=== PATIENT | female | born 1945 | race Caucasian/White ===

== ENCOUNTER → 2017-04-30 | Outpatient (CLI) | payer MEDICARE ==
[~2017-04-30] MED LIST: CELECOXIB200 M1 PO; FELODIPINE10 MG PO; HYDROCHLOROTHIA25 M1 PO; HYDROCODONE BIT1 T11 PO; SERTRALINE HYDR50 MG PO; ZOFRAN4 MG PO; ZOLPIDEM TART5 MG PO
== END | disposition home or self-care (01) ==
LOC: US 12:25
DX: N95.0 Postmenopausal bleeding (principal); R93.8 Abnormal findings on diagnostic imaging of other specified body structures

== ENCOUNTER → 2017-07-23 | Outpatient (CLI) | payer MEDICARE ==
[~2017-07-23] MED LIST changes: +ASPIRIN81 M1 PO; +BENTYL10 MG PO; +PRESERVISION A1 EAC1 PO; +PRILOSEC20 M1 PO; +STOOL SOFTENER100 M3 PO; +TYLENOL325 M1 PO; +VITAMIN C60 MG PO
[2017-07-23 11:42] LABS: BASO # 0.1 10*3/uL (0.0-0.1); BASO % 0.9 % (0.0-1.0); EOS % 0.6 % (1.0-4.0); HEMATOCRIT 41.3 % (37.0-47.0); HEMOGLOBIN 13.4 g/dl (12.0-16.0); LYMPH # 2.2 10*3/uL (1.3-4.4); LYMPH % 34.7 % (27.0-41.0); MEAN CELL VOLUME 90.8 fl (81.0-99.0); MEAN CORPUSCULAR HGB 29.5 pg (27.0-31.0); MEAN CORPUSCULAR HGB CONC 32.4 g/dl (33.0-37.0); MONO # 0.5 10*3/uL (0.1-1.0); MONO % 8.3 % (3.0-9.0); NEUT # 3.5 10*3/uL (2.3-7.9); NEUT % 55.2 % (47.0-73.0); PLATELET COUNT AUTOMATED 347 10*3/uL (130-400); RED BLOOD COUNT 4.55 10*6/uL (4.10-5.10); RED CELL DISTRI WIDTH 13.7 % (0-14.5); WHITE BLOOD COUNT 6.4 10*3/uL (4.8-10.8)
== END | disposition home or self-care (01) ==
LOC: LAB 10:09
PROVIDERS: Obstetrics & Gynecology
DX: N95.0 Postmenopausal bleeding (principal)

== ENCOUNTER → 2017-07-29 | Day surgery (SDC) | payer MEDICARE ==
[~2017-07-29] VITALS: Ht 160 cm; Wt 72.6 kg
--- NOTE | ~2017-07-29 | WRIGHTHP ---
[place], [place] PATIENT HISTORY AND PHYSICAL EXAM NAME[id number] UNIT #: [id number] ROOM: DOCTOR: JACOB WOODWARD MD BIRTHDATE: [birth year] DOS: 07/29/2017 DATE OF SURGERY: 07/29/2017 HISTORY OF PRESENT ILLNESS: This is a 71-year-old white female, 2, para 2 who was seen 07/17/2017 with a chief complaint of spotting on and off for several days prior to her appointment. She had been evaluated in March for spotting on several occasions and had an ultrasound, indicating an endometrial thickness of 0.2 cm. Her Pap at that time was negative. She also was advised to follow up of recurrent bleeding or spotting and we consider an outpatient D and C and hysteroscopy. The patient did follow up stating that she wears a pad all the time for issues, but also for intermittent spotting and bleeding which can be bright red or brown. We discussed the pluses and minuses of an outpatient hysteroscopy and D and C, she did state understanding and signed a consent. She also was having hiatal hernia repair on August 02 at [place] and we wanted to make sure we get this smaller procedure completed first before that scheduled surgery. PAST MEDICAL HISTORY: Reveals history of hypertension and depression. PAST SURGICAL HISTORY: She is due for colonoscopy in April 2018. She has had 2 pregnancies and 2 vaginal deliveries. She has had a cyst removed from an ovary. She has had left knee replacement. SOCIAL HISTORY: She does not smoke. She does not drink. ALLERGIES: BEE STINGS AND POISON JOLANTA. MEDICATIONS: List is rather lengthy in that she uses Celebrex 200 mg daily for discomfort, felodipine ER 10 mg daily for hypertension, hydrochlorothiazide 25 mg daily for hypertension, Prilosec 20 mg daily for GERD, hydrocodone and acetaminophen 5/325 one tab p.o. q.6 hours p.r.n. for pain. She uses Zoloft 50 mg daily for depression and finally she uses Myrbetriq, which she states is used for treating constipation. She does take Ambien 5 mg at bedtime p.r.n. for insomnia and Bentyl 10 mg 2 tabs q.i.d. for IBS. REVIEW OF SYSTEMS: Otherwise stable. FAMILY HISTORY: Really for this particular situation is noncontributory. PHYSICAL EXAMINATION: GENERAL: The patient is a pleasant white female. VITAL SIGNS: She is 5 feet 3 inches, 163 pounds, BMI is 29, oxygen sat 97 percent. Her blood pressure is 147/75 and she is in no apparent distress. HEENT: Grossly intact. NECK: Grossly intact. LUNGS: Grossly intact. CARDIAC: Grossly intact. BREASTS: Grossly intact. ABDOMEN: Grossly intact. EXTREMITIES: Grossly intact. [place], [place] PATIENT HISTORY AND PHYSICAL EXAM NAME: [facility] WOR[facility] [id number] UNIT #: [id number] ROOM: DOCTOR: JACOB WOODWARD MD BIRTHDATE: [birth year] NEUROLOGIC: Grossly intact. GENITOURINARY: External genitalia, vagina and cervix are normal with most recent Pap negative. Uterus is anteverted and anteflexed, overall normal in size and configuration, nontender, mobile. The adnexa were not palpable. PLAN: The patient will undergo outpatient hysteroscopy, D and C on 07/29/2017. JACOB WOODWARD MD CM:HISPHYS:PATIENT HISTORY AND PHYSICAL EXAMINATION [id number] JACOB WOODWARD MD 07/24/17 0304 interface
--- NOTE | ~2017-07-29 | O ---
[place], [place] OPERATIVE NOTE NAME: SILVESTRE WORLEY UNIT #: [id number] ROOM: DOCTOR: JACOB FORD MD BIRTHDATE: [birth year] DOS: 07/29/2017 PREOPERATIVE DIAGNOSES: Recurrent postmenopausal bleeding ____ in internal os of the cervix. POSTOPERATIVE DIAGNOSES: Recurrent postmenopausal bleeding ____ in internal os of the cervix with no evidence to suggest endometrial atypia per the hysteroscopy. PROCEDURE: Hysteroscopy and D and C. SURGEON: Dr. Jacob Ford M.D. ANESTHESIA: MAC. ESTIMATED BLOOD LOSS: Minimal. REPLACEMENTS: IV fluids. COMPLICATIONS: There were no complications. CONDITION: The patient's condition to recovery stable. OPERATIVE SUMMARY: The patient was taken to the operating room in supine position, MAC anesthesia, lithotomy position, prepped and draped in routine manner. Cervix was grasped at 12 o'clock. The uterus sounded to about 7.5-8 cm. Cervix progressively dilated, followed by hysteroscopic examination of the intrauterine cavity, which revealed a very atrophic endometrium and a symmetric endometrium from the cornual region, the fundus, the body of uterus and lower uterine segment. A thorough D and C was then undertaken and stone forceps were utilized, revealing only a small amount of tissue. Once this was completed, the patient was cleaned off, the tenaculum removed and noting good hemostasis, she was taken out of lithotomy position, awakened and transferred to recovery in stable condition with stable vital signs, good hemostasis and stable sponge and instrument count. [place], [place] OPERATIVE NOTE NAME: SILVESTRE WORLEY Clarice UNIT #: [id number] ROOM: DOCTOR: JACOB FORD MD BIRTHDATE: [birth year] JACOB FORD MD CM:OPRECORD:OPERATIVE NOTE [id number] SHELL FORD MD 07/30/17 0625 interface
[2017-07-29 14:15] VITALS: BP 160/62
[2017-07-29 14:30] VITALS: BP 177/64
[2017-07-29 14:45] VITALS: BP 184/70
== END | disposition home or self-care (01) ==
LOC: SDC 07-23 10:15
DX: N92.4 Excessive bleeding in the premenopausal period (principal); I10 Essential (primary) hypertension; F32.9 Major depressive disorder, single episode, unspecified; Z96.652 Presence of left artificial knee joint; K21.9 Gastro-esophageal reflux disease without esophagitis; M19.90 Unspecified osteoarthritis, unspecified site; Z82.49 Family history of ischemic heart disease and other diseases of the circulatory system; Z87.891 Personal history of nicotine dependence

== ENCOUNTER 2018-02-22 13:00 | Emergency (ER) | payer MEDICARE ==
[~2018-02-22] VITALS: Ht 157.4 cm; Wt 72.6 kg
[2018-02-22 14:00] LABS: BASO % 0.7 % (0.0-1.0); EOS # 0.1 10*3/uL (0.0-0.4); HEMOGLOBIN 12.3 g/dl (12.0-16.0); LYMPH # 2.1 10*3/uL (1.3-4.4); LYMPH % 33.8 % (27.0-41.0); MEAN CELL VOLUME 92.2 fl (81.0-99.0); MEAN CORPUSCULAR HGB 29.1 pg (27.0-31.0); MEAN CORPUSCULAR HGB CONC 31.5 g/dl (33.0-37.0); MONO # 0.5 10*3/uL (0.1-1.0); MONO % 8.6 % (3.0-9.0); NEUT # 3.3 10*3/uL (2.3-7.9); NEUT % 54.7 % (47.0-73.0); PLATELET COUNT AUTOMATED 306 10*3/uL (130-400); RED BLOOD COUNT 4.23 10*6/uL (4.10-5.10); RED CELL DISTRI WIDTH 14.3 % (0-14.5); WHITE BLOOD COUNT 6.1 10*3/uL (4.8-10.8)
[2018-02-22 14:22] LABS: ALBUMIN 3.9 gm/dl (3.1-4.5); ALKALINE PHOSPHATASE 89 U/L (45-117); BUN 18 mg/dl (7-24); CHLORIDE 103 mmol/L (98-107); CREATININE 0.83 mg/dL (0.55-1.02); POTASSIUM 4.1 mmol/L (3.5-5.1); SGOT/AST 28 IU/L (3-35); SGPT/ALT 29 U/L (12-78); SODIUM 141 mmol/L (136-145); TOTAL PROTEIN 7.3 gm/dL (6.4-8.2)
[2018-02-22] MEDS ORDERED: NORVASC5 MG PO (14:43)
== END 2018-02-22 14:46 | disposition home or self-care (01) ==
LOC: ED 13:00
PROVIDERS: Registered Nurse
DX: M17.11 Unilateral primary osteoarthritis, right knee (principal); I10 Essential (primary) hypertension; Z79.899 Other long term (current) drug therapy; Z79.82 Long term (current) use of aspirin

== ENCOUNTER → 2018-05-05 | Outpatient (CLI) | payer MEDICARE ==
[~2018-05-05] MED LIST changes: +NORVASC5 MG PO
== END ==
LOC: MRI 07:44
DX: S83.241A Other tear of medial meniscus, current injury, right knee, initial encounter (principal); M71.20 Synovial cyst of popliteal space [Baker], unspecified knee; M25.861 Other specified joint disorders, right knee; X58.XXXA Exposure to other specified factors, initial encounter; Y93.89 Activity, other specified; Y92.89 Other specified places as the place of occurrence of the external cause; Y99.8 Other external cause status; Z91.81 History of falling

== ENCOUNTER → 2018-05-21 | Outpatient (CLI) | payer MEDICARE | END | disposition home or self-care (01) | LOC: MRI 05-19 08:00 | DX: M48.07 Spinal stenosis, lumbosacral region (principal); M48.061 Spinal stenosis, lumbar region without neurogenic claudication; M51.36 Other intervertebral disc degeneration, lumbar region; M51.26 Other intervertebral disc displacement, lumbar region; I10 Essential (primary) hypertension; M54.16 Radiculopathy, lumbar region; G83.10 Monoplegia of lower limb affecting unspecified side; Z91.81 History of falling ==

== ENCOUNTER → 2018-12-08 | Outpatient (CLI) | payer MEDICARE | END | disposition home or self-care (01) | LOC: CT 11:00 | DX: R19.07 Generalized intra-abdominal and pelvic swelling, mass and lump (principal); R10.12 Left upper quadrant pain; M47.816 Spondylosis without myelopathy or radiculopathy, lumbar region; L92.9 Granulomatous disorder of the skin and subcutaneous tissue, unspecified ==

== ENCOUNTER → 2019-06-04 | Outpatient (CLI) | payer MEDICARE | END | disposition home or self-care (01) | LOC: US 06:12 | DX: I70.291 Other atherosclerosis of native arteries of extremities, right leg (principal); I25.10 Atherosclerotic heart disease of native coronary artery without angina pectoris; I10 Essential (primary) hypertension ==

== ENCOUNTER 2019-07-14 15:51 | Inpatient (IN) | payer MEDICARE ==
[~2019-07-14] VITALS: Ht 152.4 cm; Wt 74.4 kg
[2019-07-14 15:53] VITALS: BP 188/60
[2019-07-14 17:00] LABS: BASO % 0.7 % (0.0-1.0); EOS # 0.1 10*3/uL (0.0-0.4); EOS % 1.6 % (1.0-4.0); HEMATOCRIT 35.5 % (37.0-47.0); HEMOGLOBIN 11.2 g/dl (12.0-16.0); LYMPH # 2.3 10*3/uL (1.3-4.4); LYMPH % 36.9 % (27.0-41.0); MEAN CELL VOLUME 94.2 fl (81.0-99.0); MEAN CORPUSCULAR HGB 29.7 pg (27.0-31.0); MEAN CORPUSCULAR HGB CONC 31.5 g/dl (33.0-37.0); MEAN PLATELET VOLUME 9.3 fl (9.6-12.3); MONO # 0.5 10*3/uL (0.1-1.0); NEUT # 3.2 10*3/uL (2.3-7.9); NEUT % 52.6 % (47.0-73.0); PLATELET COUNT AUTOMATED 304 10*3/uL (130-400); RED BLOOD COUNT 3.77 10*6/uL (4.10-5.10); RED CELL DISTRI WIDTH 14.1 % (0-14.5); WHITE BLOOD COUNT 6.1 10*3/uL (4.8-10.8)
[2019-07-14 17:03] LABS: ACT PARTIAL THROMBO TIME 24.7 SECONDS (20.0-32.1)
[2019-07-14 17:07] LABS: ALBUMIN 3.4 gm/dl (3.1-4.5); ALKALINE PHOSPHATASE 81 U/L (45-117); BUN 15 mg/dl (7-24); CHLORIDE 106 mmol/L (98-107); CREATININE 0.71 mg/dL (0.55-1.02); LIPASE 70 U/L (73-393); POTASSIUM 3.6 mmol/L (3.5-5.1); SGOT/AST 16 IU/L (3-35); SGPT/ALT 14 U/L (12-78); SODIUM 141 mmol/L (136-145); TOTAL PROTEIN 6.7 gm/dL (6.4-8.2)
[2019-07-14 17:16] LABS: TROPONIN I 0.047 ng/ml (<0.045)
[2019-07-14 18:17] LABS: BILIRUBIN NEGATIVE (NEGATIVE); BLOOD NEGATIVE (NEGATIVE); CLARITY CLEAR (CLEAR); COLOR YELLOW (YELLOW); GLUCOSE NEGATIVE (NEGATIVE); KETONE 1+ (NEGATIVE); LEUKO ESTERASE NEGATIVE (NEGATIVE); NITRITE NEGATIVE (NEGATIVE); SPECIFIC GRAVITY 1.025 (1.005-1.030); UROBILINOGEN 0.2 E.U./dl (0.2-1.0)
[2019-07-14 18:28] LABS: BACTERIA TRACE; CALCIUM OXALATE CRYSTALS 2+
[2019-07-14 19:00] VITALS: BP 189/67
[2019-07-14 20:25] VITALS: BP 178/72
--- NOTE | 2019-07-14 20:25 | NUR ---
A 73, admitted to , under the services of DHARA Yoon DO with a diagnosis of GENERALIZED WEAKNESS. Chief complaint is GI BLEEDING. Patient arrived via stretcher from ER. Monitor applied. Initial assessment completed. Vital signs taken and recorded. DR. DUONG notified of admission to the unit. Orders received. See assessment for past medical history, medications and allergies. Patient and/or family oriented to unit. [address] visitation policy reviewed. Clothing/patient valuable form completed. MAHIN BETH
--- NOTE | 2019-07-14 20:59 | NUR ---
NOTIFIED DR. RESENDIZ OF CONSULT FOR GI BLEED, MELENA. NO NEW ORDERS AT THIS TIME.
[2019-07-14] MEDS ORDERED: ZOLOFT100 MG PO (21:06)
[2019-07-14] MEDS ORDERED: COREG6.25 MG PO (21:07)
[2019-07-14] MEDS ORDERED: BUSPAR5 MG PO (21:07)
[2019-07-14] MEDS ORDERED: ZESTRIL20 MG PO (21:07)
[2019-07-14] MEDS ORDERED: CENTRUM VITAM200 MCG PO (21:08)
[2019-07-14] MEDS ORDERED: OSTERA TABLET1 EACH PO (21:09)
[2019-07-14] MEDS ORDERED: PERCOCET 5-3251 EACH PO (21:10)
--- NOTE | 2019-07-14 21:30 | NUR ---
NOTIFIED DR. DUONG THAT PATIENT'S MED LIST WAS UP TO DATE EXCEPT THE MEDICATION THAT REPLACED HER CELEBREX. DAUGHTER WILL LET US KNOW TOMORROW THE NAME OF THE NEW MEDICATION.
[2019-07-15] VITALS (7 sets, daily range): BP systolic 150–202; BP diastolic 59–76
--- NOTE | 2019-07-15 00:44 | NUR ---
DR. DUONG NONTIFIED OF CRITICAL TROPONIN OF 0.050.
[2019-07-15 06:55] LABS: BASO % 0.8 % (0.0-1.0); EOS # 0.1 10*3/uL (0.0-0.4); EOS % 1.6 % (1.0-4.0); HEMATOCRIT 34.8 % (37.0-47.0); HEMOGLOBIN 11.1 g/dl (12.0-16.0); LYMPH % 39.7 % (27.0-41.0); MEAN CELL VOLUME 94.3 fl (81.0-99.0); MEAN CORPUSCULAR HGB 30.1 pg (27.0-31.0); MEAN CORPUSCULAR HGB CONC 31.9 g/dl (33.0-37.0); MEAN PLATELET VOLUME 9.3 fl (9.6-12.3); MONO # 0.5 10*3/uL (0.1-1.0); MONO % 9.7 % (3.0-9.0); NEUT # 2.4 10*3/uL (2.3-7.9); PLATELET COUNT AUTOMATED 312 10*3/uL (130-400); RED BLOOD COUNT 3.69 10*6/uL (4.10-5.10); RED CELL DISTRI WIDTH 14.1 % (0-14.5); WHITE BLOOD COUNT 4.9 10*3/uL (4.8-10.8)
[2019-07-15 07:28] LABS: BUN 9 mg/dl (7-24); CHLORIDE 106 mmol/L (98-107); POTASSIUM 3.2 mmol/L (3.5-5.1); SODIUM 138 mmol/L (136-145)
[2019-07-15 07:41] LABS: CHOLESTEROL 202 mg/dL (<200); CREATININE 0.58 mg/dL (0.55-1.02); FREE T4 0.98 ng/dl (0.76-1.46); HDL CHOLESTEROL 69 mg/dl (40-60); LDL CHOLESTEROL 120 mg/dL (9-159); PHOSPHOROUS 2.9 mg/dL (2.5-4.9); TRIGLYCERIDES 64 mg/dl (<150); VLDL CHOLESTEROL 13 mg/dL (6-40)
--- NOTE | 2019-07-15 08:29 | NUR ---
NOTIFIED DR. VAZQUEZ OF CRITICAL LAB VALUE.
--- NOTE | 2019-07-15 08:52 | NUR ---
Nursing screen received and chart reviewed. Patient admitted for elevated troponin I levels and generalized weakness. Patient has a PMH including R TKA, HTN, and OA. If patient has a decline in ADLs and functional mobility/transfers, please request OT orders. Thank you. Sabrina Mckinley, OTR/L
--- NOTE | 2019-07-15 09:00 | NUR ---
Kettle Cleaner in to talk to patient. Patient states lives at home with her who is currently a patient in the hospital. There are 0 steps in the home. Physician: Dr. Micah House Pharmacy: [facility] Home health services: she goes to OP PT in [facility] on [address], she doesn't know the name of the company Patient's level of ADLs: MINIMAL ASSIST Patient has working utilities: yes DME: walker Follow-up physician's appointment after d/c: will be made by the hospitalist nurse director upon discharge Does patient want to access PORTAL?: no Discharge plan discussed with patient. She lives at home with her who is currently an IP also. She is independent in her ADLs and uses a walker for ambulation. Discussed home health care services and she currently is doing OP PT in [place]. Discussed short term SNF and she refuses. When medically stable she will be discharged to home. Her daughter will provide transportation on discharge. ASAEL EARL
[2019-07-15 09:01] LABS: VITAMIN D, 25-HYDROXY 27.5 ng/mL (30-100)
--- NOTE | 2019-07-15 09:03 | NUR ---
PHYSICAL THERAPY Nursing screen received and chart reviewed. Recommend PT evaluation if decline in functional status presents. Thank you. Pau Escalera,PT,DPT
--- NOTE | 2019-07-15 10:06 | NUR ---
NOTIFIED DR. MORGAN'S OFFICE OF CONSULT.
--- NOTE | 2019-07-15 10:23 | NUR ---
ZOFRAN GIVEN FOR C/O NAUSEA. WILL MONITOR.
--- NOTE | 2019-07-15 11:51 | NUR ---
PT. INSTRUCTED ON I/S AND THE BENEFITS OF EXERCISE. PT. ACHIEVED A VOLUME OF 1500. PT. INSTRUCTED TO TAKE HOME UPON DISHARGE. GOOD EFFORT.
--- NOTE | 2019-07-15 12:17 | NUR ---
DR. VAZQUEZ NOTIFIED OF PATIENT'S MANUAL BLOOD PRESSURE OF 202/72. AWAITING ORDERS
--- NOTE | 2019-07-15 12:44 | NUR ---
DULCOLAX GIVEN FOR C/O CONSTIPATION. WILL MONITOR.
--- NOTE | 2019-07-15 14:30 | NUR ---
Occupational Therapy evaluation completed on 4 with full eval to follow. Precautions include ww use, right TKA 06/09/19, low complexity level 12597 via chart review, testing and evaluation. Recommend no further OT at this time and return home with outpt PT to be continued per patient. Thank you. Tobin Chong OTR/L
--- NOTE | 2019-07-15 14:52 | NUR ---
PHYSICAL THERAPY Physical therapy screen complete. Patient Chau with FWW throughout hallways. No PT needs at this time. Plan to continue outpatient PT services at discharge. Discharge PT orders. Thank you. Pau Escalera,PT,DPT.
[2019-07-16] VITALS: BP 145/46
[2019-07-16 06:52] LABS: BASO % 0.7 % (0.0-1.0); EOS # 0.1 10*3/uL (0.0-0.4); EOS % 1.6 % (1.0-4.0); HEMOGLOBIN 10.8 g/dl (12.0-16.0); LYMPH # 2.3 10*3/uL (1.3-4.4); LYMPH % 40.5 % (27.0-41.0); MEAN CELL VOLUME 94.1 fl (81.0-99.0); MEAN CORPUSCULAR HGB CONC 30.9 g/dl (33.0-37.0); MEAN PLATELET VOLUME 9.6 fl (9.6-12.3); MONO # 0.6 10*3/uL (0.1-1.0); MONO % 10.5 % (3.0-9.0); NEUT # 2.7 10*3/uL (2.3-7.9); NEUT % 46.5 % (47.0-73.0); PLATELET COUNT AUTOMATED 322 10*3/uL (130-400); RED BLOOD COUNT 3.72 10*6/uL (4.10-5.10); RED CELL DISTRI WIDTH 14.2 % (0-14.5); WHITE BLOOD COUNT 5.7 10*3/uL (4.8-10.8)
[2019-07-16 07:04] LABS: CHLORIDE 109 mmol/L (98-107); POTASSIUM 3.7 mmol/L (3.5-5.1); SODIUM 144 mmol/L (136-145)
[2019-07-16 07:06] LABS: BUN 13 mg/dl (7-24); CREATININE 0.69 mg/dL (0.55-1.02); PHOSPHOROUS 3.1 mg/dL (2.5-4.9)
[2019-07-16 08:00] VITALS: BP 160/78
--- NOTE | 2019-07-16 10:16 | NUR ---
PATIENT REQUESTING PAIN MEDICATION FOR KNEE PAIN RATED 6/10 ON 0/10 SCALE. PERCOCET ADMINISTERED PRESCRIBED. WILL MONITOR FOR EFFECTIVENESS.
--- NOTE | 2019-07-16 11:16 | NUR ---
PATIENT STATES THAT PERCOCET WAS EFFECTIVE FOR KNEE PAIN RATES 2/10 ON 0/10 SCALE. WILL CONTINUE TO MONITOR.
[2019-07-16 12:00] VITALS: BP 132/52
--- NOTE | 2019-07-16 14:01 | NUR ---
Client Solutions Manager in to see patient. No new needs or request at this time. Discussed short term SNF and home health care services and she denies either. When medically stable she will be discharged to home with the resumption of her OP therapy in [place].
[2019-07-16 16:00] VITALS: BP 158/68
[2019-07-16 20:00] VITALS: BP 177/46
[2019-07-17] VITALS: BP 149/57
[2019-07-17 06:57] LABS: BASO % 0.6 % (0.0-1.0); EOS # 0.1 10*3/uL (0.0-0.4); EOS % 2.2 % (1.0-4.0); HEMATOCRIT 35.8 % (37.0-47.0); HEMOGLOBIN 11.4 g/dl (12.0-16.0); LYMPH # 2.2 10*3/uL (1.3-4.4); MEAN CORPUSCULAR HGB 29.9 pg (27.0-31.0); MEAN CORPUSCULAR HGB CONC 31.8 g/dl (33.0-37.0); MEAN PLATELET VOLUME 8.9 fl (9.6-12.3); MONO # 0.5 10*3/uL (0.1-1.0); MONO % 8.4 % (3.0-9.0); NEUT # 3.4 10*3/uL (2.3-7.9); NEUT % 53.5 % (47.0-73.0); PLATELET COUNT AUTOMATED 324 10*3/uL (130-400); RED BLOOD COUNT 3.81 10*6/uL (4.10-5.10); RED CELL DISTRI WIDTH 14.1 % (0-14.5); WHITE BLOOD COUNT 6.3 10*3/uL (4.8-10.8)
--- NOTE | 2019-07-17 09:00 | NUR ---
Fried Cake Maker in to see patient. No new needs or request at this time. When medically stable she will be discharged to home with the resumption of her OP therapy in [place].
[2019-07-17 10:40] VITALS: BP 140/80
[2019-07-17 12:00] VITALS: BP 157/53
[2019-07-17] MEDS ORDERED: ASPIR-TRIN325 MG PO (12:01)
[2019-07-17] MEDS ORDERED: COREG12.5 M1 PO (12:04)
[2019-07-17] MEDS ORDERED: ZESTRIL30 M3 PO (12:04)
[2019-07-17] MEDS ORDERED: ATORVASTATIN CA40 M1 PO (12:04)
--- NOTE | 2019-07-17 14:45 | NUR ---
Discharge instructions reviewed with patient/family. Patient receptive and verbalizes understanding. Follow-up care arranged. Written instructions given to patient/family.Patient was wheeled from unit by staff and family member. Patient and daughter were educated on new prescriptions and follow up appointment scheduled with Dr. Potts. All of patients personal belongings were accounted for. FAITH PIÑA
== END 2019-07-17 14:45 | disposition home or self-care (01) | DRG 305 ==
LOC: ED 15:51 → 4E 17:54 → EDHOLD 17:54 → 4E 19:51
PROVIDERS: Internal Medicine; Nurse Practitioner Family; Student in an Organized Health Care Education/Training Program; ADMIT Internal Medicine
DX: I16.0 Hypertensive urgency (principal); I43 Cardiomyopathy in diseases classified elsewhere; I10 Essential (primary) hypertension; D64.9 Anemia, unspecified; K21.9 Gastro-esophageal reflux disease without esophagitis; Z96.651 Presence of right artificial knee joint; M19.90 Unspecified osteoarthritis, unspecified site; R79.89 Other specified abnormal findings of blood chemistry; E78.5 Hyperlipidemia, unspecified; E87.6 Hypokalemia; M17.10 Unilateral primary osteoarthritis, unspecified knee; I11.9 Hypertensive heart disease without heart failure; I25.10 Atherosclerotic heart disease of native coronary artery without angina pectoris; I08.0 Rheumatic disorders of both mitral and aortic valves; Z91.030 Bee allergy status; Z79.899 Other long term (current) drug therapy; Z79.82 Long term (current) use of aspirin; Z82.49 Family history of ischemic heart disease and other diseases of the circulatory system; Z84.89 Family history of other specified conditions

== ENCOUNTER 2019-08-06 15:45 | Emergency (ER) | payer MEDICARE ==
[~2019-08-06] VITALS: Ht 152.4 cm; Wt 72.6 kg
[~2019-08-06 15:45] MED LIST changes: +ASPIR-TRIN325 MG PO; +ATORVASTATIN CA40 M1 PO; +BUSPAR5 MG PO; +CENTRUM VITAM200 MCG PO; +COREG12.5 M1 PO; +COREG6.25 MG PO; +OSTERA TABLET1 EACH PO; +PERCOCET 5-3251 EACH PO; +ZESTRIL20 MG PO; +ZESTRIL30 M3 PO; +ZOLOFT100 MG PO
== END 2019-08-06 16:29 | disposition home or self-care (01) ==
LOC: ED 15:45
DX: R53.83 Other fatigue (principal); Z01.31 Encounter for examination of blood pressure with abnormal findings; I10 Essential (primary) hypertension; Z88.1 Allergy status to other antibiotic agents; Z91.048 Other nonmedicinal substance allergy status; Z79.899 Other long term (current) drug therapy; Z79.82 Long term (current) use of aspirin

== ENCOUNTER 2020-03-16 22:01 | Emergency (ER) | payer MEDICARE ==
[~2020-03-16] VITALS: Ht 157.4 cm; Wt 77.1 kg
[2020-03-16 22:37] LABS: BASO % 0.2 % (0.0-1.0); HEMATOCRIT 35.4 % (37.0-47.0); LYMPH % 18.3 % (27.0-41.0); MEAN CELL VOLUME 92.7 fl (81.0-99.0); MEAN CORPUSCULAR HGB 30.1 pg (27.0-31.0); MEAN CORPUSCULAR HGB CONC 32.5 g/dl (33.0-37.0); MEAN PLATELET VOLUME 9.3 fl (9.6-12.3); MONO # 0.4 10*3/uL (0.1-1.0); MONO % 7.4 % (3.0-9.0); NEUT % 73.9 % (47.0-73.0); PLATELET COUNT AUTOMATED 223 10*3/uL (130-400); RED BLOOD COUNT 3.82 10*6/uL (4.10-5.10); RED CELL DISTRI WIDTH 12.9 % (0-14.5); WHITE BLOOD COUNT 5.4 10*3/uL (4.8-10.8)
[2020-03-16 22:47] LABS: ACT PARTIAL THROMBO TIME 30.2 SECONDS (20.0-32.1)
[2020-03-16 22:53] LABS: ALBUMIN 3.3 gm/dl (3.1-4.5); CREATININE 1.25 mg/dL (0.55-1.02); POTASSIUM 3.5 mmol/L (3.5-5.1); TROPONIN I 0.025 ng/ml (<0.045)
[2020-03-17 00:27] LABS: BILIRUBIN NEGATIVE (NEGATIVE); BLOOD TRACE-INTACT (NEGATIVE); CLARITY SL CLOUDY (CLEAR); COLOR YELLOW (YELLOW); GLUCOSE NEGATIVE (NEGATIVE); KETONE NEGATIVE (NEGATIVE); SPECIFIC GRAVITY 1.015 (1.005-1.030)
[2020-03-17 00:28] LABS: LEUKO ESTERASE TRACE (NEGATIVE); NITRITE NEGATIVE (NEGATIVE); UROBILINOGEN 0.2 E.U./dl (0.2-1.0)
[2020-03-17] MEDS ORDERED: MEDROL DOSEPAK4 MG PO (04:08)
== END 2020-03-17 04:31 | disposition home or self-care (01) ==
LOC: ED 22:01
PROVIDERS: Emergency Medicine
DX: M54.5 Low back pain (principal); R06.02 Shortness of breath; G89.29 Other chronic pain; I10 Essential (primary) hypertension; E78.5 Hyperlipidemia, unspecified; M19.90 Unspecified osteoarthritis, unspecified site; F32.9 Major depressive disorder, single episode, unspecified; K21.9 Gastro-esophageal reflux disease without esophagitis; Z88.8 Allergy status to other drugs, medicaments and biological substances; Z79.899 Other long term (current) drug therapy

== ENCOUNTER 2020-03-23 22:02 | Emergency (ER) | payer MEDICARE ==
[~2020-03-23] VITALS: Ht 160 cm; Wt 83.0 kg
[~2020-03-23 22:02] MED LIST changes: +MEDROL DOSEPAK4 MG PO
[2020-03-23 22:35] LABS: MEAN CELL VOLUME 91.8 fl (81.0-99.0); MEAN CORPUSCULAR HGB CONC 32.7 g/dl (33.0-37.0); MEAN PLATELET VOLUME 9.2 fl (9.6-12.3); PLATELET COUNT AUTOMATED 465 10*3/uL (130-400); RED BLOOD COUNT 4.03 10*6/uL (4.10-5.10); RED CELL DISTRI WIDTH 12.6 % (0-14.5); WHITE BLOOD COUNT 17.7 10*3/uL (4.8-10.8)
[2020-03-23 22:40] LABS: BILIRUBIN NEGATIVE (NEGATIVE); BLOOD NEGATIVE (NEGATIVE); CLARITY SL CLOUDY (CLEAR); COLOR YELLOW (YELLOW); GLUCOSE NEGATIVE (NEGATIVE); KETONE NEGATIVE (NEGATIVE); LEUKO ESTERASE 2+ (NEGATIVE); NITRITE NEGATIVE (NEGATIVE); UROBILINOGEN 0.2 E.U./dl (0.2-1.0)
[2020-03-23] MEDS ORDERED: ZESTORETIC 20-1 EACH PO (22:46)
[2020-03-23] MEDS ORDERED: AMLODIPINE BESY10 MG PO (22:47)
[2020-03-23 22:51] LABS: CREATININE 1.13 mg/dL (0.55-1.02); POTASSIUM 4.1 mmol/L (3.5-5.1); TOTAL PROTEIN 7.2 gm/dL (6.4-8.2)
[2020-03-23] MEDS ORDERED: CARVEDILOL6.25 MG PO (22:52)
[2020-03-23] MEDS ORDERED: CELECOXIB200 M1 PO (22:53)
[2020-03-23] MEDS ORDERED: POTASSIUM CHLO20 ME4 PO (22:54)
[2020-03-23] MEDS ORDERED: NITROFURANTOIN100 M9 PO (22:54)
[2020-03-23 22:55] LABS: BACTERIA 1+; WBC 16-20 wbc/hpf (0-5)
[2020-03-23 23:00] LABS: PLATELET SUFFICIENCY HIGH (NORMAL); TOTAL CELLS COUNTED 100 #CELLS
== END 2020-03-24 01:58 | disposition short-term general hospital (02) ==
LOC: ED 22:02
PROVIDERS: Emergency Medicine
DX: S72.141A Displaced intertrochanteric fracture of right femur, initial encounter for closed fracture (principal); I10 Essential (primary) hypertension; E78.5 Hyperlipidemia, unspecified; M19.90 Unspecified osteoarthritis, unspecified site; G89.29 Other chronic pain; K21.9 Gastro-esophageal reflux disease without esophagitis; Z88.1 Allergy status to other antibiotic agents; Z79.899 Other long term (current) drug therapy; Z79.82 Long term (current) use of aspirin; W01.0XXA Fall on same level from slipping, tripping and stumbling without subsequent striking against object, initial encounter; Y93.89 Activity, other specified; Y92.89 Other specified places as the place of occurrence of the external cause; Y99.8 Other external cause status

== ENCOUNTER → 2020-06-17 | Outpatient (CLI) | payer MEDICARE ==
[~2020-06-17] MED LIST changes: +AMLODIPINE BESY10 MG PO; +CARVEDILOL6.25 MG PO; +NITROFURANTOIN100 M9 PO; +POTASSIUM CHLO20 ME4 PO; +ZESTORETIC 20-1 EACH PO
== END | disposition home or self-care (01) ==
LOC: US 12:23
PROVIDERS: ATTEND Orthopaedic Surgery
DX: R06.02 Shortness of breath (principal); M79.651 Pain in right thigh; M25.559 Pain in unspecified hip

== ENCOUNTER 2022-09-20 12:29 | Emergency (ER) | payer MEDICARE ==
[~2022-09-20] VITALS: Ht 152.4 cm; Wt 77.1 kg
[2022-09-20] MEDS ORDERED: MYRBETRIQ50 M1 PO (13:53)
[2022-09-20] MEDS ORDERED: VITAMIN D-40010 MCG PO (13:55)
== END 2022-09-20 15:25 | disposition home or self-care (01) ==
LOC: ED 12:29
DX: S76.211A Strain of adductor muscle, fascia and tendon of right thigh, initial encounter (principal); Z88.1 Allergy status to other antibiotic agents; Z79.899 Other long term (current) drug therapy; Z98.890 Other specified postprocedural states; X50.9XXA Other and unspecified overexertion or strenuous movements or postures, initial encounter; Y93.89 Activity, other specified; Y92.89 Other specified places as the place of occurrence of the external cause; Y99.8 Other external cause status

== ENCOUNTER 2022-11-18 12:23 | Emergency (ER) | payer MEDICARE ==
[~2022-11-18] VITALS: Ht 152.4 cm; Wt 74.8 kg
[~2022-11-18 12:23] MED LIST changes: +MYRBETRIQ50 M1 PO; +VITAMIN D-40010 MCG PO
[2022-11-18] MEDS ORDERED: HYDROCODONE-AC1 EAC1 PO (14:31)
== END 2022-11-18 14:53 | disposition home or self-care (01) ==
LOC: ED 12:23
DX: S83.411A Sprain of medial collateral ligament of right knee, initial encounter (principal); W22.8XXA Striking against or struck by other objects, initial encounter; Y93.89 Activity, other specified; Y92.89 Other specified places as the place of occurrence of the external cause; Y99.8 Other external cause status; Z88.1 Allergy status to other antibiotic agents; Z88.8 Allergy status to other drugs, medicaments and biological substances; Z98.890 Other specified postprocedural states

== ENCOUNTER 2023-05-30 16:31 | Emergency (ER) | payer MEDICARE ==
[~2023-05-30] VITALS: Ht 152.4 cm; Wt 77.1 kg
[~2023-05-30 16:31] MED LIST changes: +HYDROCODONE-AC1 EAC1 PO
[2023-05-30 17:38] LABS: BASO % 0.2 % (0.0-1.0); EOS # 0.1 10*3/uL (0.0-0.4); EOS % 0.4 % (1.0-4.0); HEMATOCRIT 38.7 % (37.0-47.0); LYMPH # 2.7 10*3/uL (1.3-4.4); LYMPH % 14.8 % (27.0-41.0); MEAN CELL VOLUME 92.1 fl (81.0-99.0); MEAN CORPUSCULAR HGB 30.2 pg (27.0-31.0); MEAN CORPUSCULAR HGB CONC 32.8 g/dl (33.0-37.0); MONO % 5.2 % (3.0-9.0); NEUT # 14.3 10*3/uL (2.3-7.9); NEUT % 78.9 % (47.0-73.0); PLATELET COUNT AUTOMATED 343 10*3/uL (130-400); RED CELL DISTRI WIDTH 13.6 % (0-14.5); WHITE BLOOD COUNT 18.2 10*3/uL (4.8-10.8)
[2023-05-30 17:59] LABS: POTASSIUM 3.3 mmol/L (3.4-5.1); TOTAL PROTEIN 6.8 gm/dL (6.0-8.0)
[2023-05-30 22:18] LABS: BILIRUBIN Negative (Negative); BLOOD Negative (Negative); CLARITY Clear (Clear); COLOR Yellow (Yellow); GLUCOSE Negative (Negative); KETONE 1+ (Negative); LEUKO ESTERASE Negative (Negative); NITRITE Negative (Negative); PH 5.5 (4.5-8.0); SPECIFIC GRAVITY 1.015 (1.001-1.030); UROBILINOGEN 0.2 E.U./dl (0.0-1.0)
[2023-05-30 22:27] LABS: EPITHELIAL CELLS 16-20
[2023-05-30 22:28] LABS: BACTERIA TRACE
[2023-06-04] MEDS ORDERED: VENLAFAXINE HYD75 M3 PO (03:05)
== END 2023-05-30 23:20 | disposition home or self-care (01) ==
LOC: ED 16:31
PROVIDERS: Internal Medicine
DX: B34.9 Viral infection, unspecified (principal); Z20.822 Contact with and (suspected) exposure to COVID-19; R11.2 Nausea with vomiting, unspecified; R19.7 Diarrhea, unspecified; N17.9 Acute kidney failure, unspecified; E83.42 Hypomagnesemia; D72.89 Other specified disorders of white blood cells; Z88.1 Allergy status to other antibiotic agents; Z91.048 Other nonmedicinal substance allergy status; Z79.899 Other long term (current) drug therapy; Z79.2 Long term (current) use of antibiotics; Z98.890 Other specified postprocedural states; Z96.642 Presence of left artificial hip joint; Z96.651 Presence of right artificial knee joint; Z87.42 Personal history of other diseases of the female genital tract

== ENCOUNTER 2024-02-04 11:07 | Emergency (ER) | payer MEDICARE ==
[~2024-02-04] VITALS: Ht 152.4 cm; Wt 72.6 kg
[~2024-02-04 11:07] MED LIST changes: +HYDROXYZINE HCL25 MG PO; +LEVOFLOXACIN750 M2 PO; +PROAIR DIGIHAL90 MCG INH; +REMERON15 M2 PO; +VANCOCIN125 MG PO; +VANCOMYCIN HCL125 MG PO; +VENLAFAXINE HYD75 M3 PO; +ZYRTEC10 M2 PO
[2024-02-04 12:41] LABS: BASO % 0.3 % (0.0-1.0); EOS % 0.5 % (1.0-4.0); HEMATOCRIT 40.2 % (37.0-47.0); LYMPH # 2.1 10*3/uL (1.3-4.4); LYMPH % 26.7 % (27.0-41.0); MEAN CELL VOLUME 93.7 fl (81.0-99.0); MEAN CORPUSCULAR HGB 29.1 pg (27.0-31.0); MEAN CORPUSCULAR HGB CONC 31.1 g/dl (33.0-37.0); MEAN PLATELET VOLUME 9.1 fl (9.6-12.3); MONO # 0.6 10*3/uL (0.1-1.0); MONO % 7.2 % (3.0-9.0); NEUT # 5.1 10*3/uL (2.3-7.9); NEUT % 65.2 % (47.0-73.0); PLATELET COUNT AUTOMATED 319 10*3/uL (130-400); RED BLOOD COUNT 4.29 10*6/uL (4.10-5.10); RED CELL DISTRI WIDTH 14.2 % (0-14.5); WHITE BLOOD COUNT 7.9 10*3/uL (4.8-10.8)
[2024-02-04 13:07] LABS: TOTAL PROTEIN 7.3 gm/dL (6.0-8.0)
[2024-02-04] MEDS ORDERED: MAGNESIUM CITRATE 296 ML BOT PO ONE (15:25)
== END 2024-02-04 15:55 | disposition home or self-care (01) ==
LOC: ED 11:07
PROVIDERS: Internal Medicine
DX: N13.30 Unspecified hydronephrosis (principal); M19.90 Unspecified osteoarthritis, unspecified site; I10 Essential (primary) hypertension; F32.A Depression, unspecified; K21.9 Gastro-esophageal reflux disease without esophagitis; Z88.1 Allergy status to other antibiotic agents; Z88.8 Allergy status to other drugs, medicaments and biological substances; Z98.890 Other specified postprocedural states; Z96.651 Presence of right artificial knee joint

== ENCOUNTER → 2024-02-17 | Outpatient (CLI) | payer MEDICARE ==
[~2024-02-17] MED LIST changes: +IOHEXOL 350 MG/ML 100 ML VIAL IV ONE
== END | disposition home or self-care (01) ==
LOC: CT 11:00
PROVIDERS: ATTEND Urology
DX: N13.30 Unspecified hydronephrosis (principal); K76.0 Fatty (change of) liver, not elsewhere classified; I25.10 Atherosclerotic heart disease of native coronary artery without angina pectoris; N26.1 Atrophy of kidney (terminal); I70.0 Atherosclerosis of aorta

== ENCOUNTER → 2024-08-10 | Outpatient (CLI) | payer MEDICARE ==
[~2024-08-10] MED LIST changes: -IOHEXOL 350 MG/ML 100 ML VIAL IV ONE
== END | disposition home or self-care (01) ==
LOC: CT 14:00
PROVIDERS: ATTEND Urology
DX: N26.1 Atrophy of kidney (terminal) (principal); N39.0 Urinary tract infection, site not specified; N13.30 Unspecified hydronephrosis; J98.11 Atelectasis; I25.10 Atherosclerotic heart disease of native coronary artery without angina pectoris; K29.60 Other gastritis without bleeding

== ENCOUNTER → 2024-08-19 | Outpatient (CLI) | payer MEDICARE ==
[2024-08-19 14:36] LABS: HEMATOCRIT 39.2 % (37.0-47.0); MEAN CELL VOLUME 95.1 fl (81.0-99.0); MEAN CORPUSCULAR HGB 29.6 pg (27.0-31.0); MEAN CORPUSCULAR HGB CONC 31.1 g/dl (33.0-37.0); MEAN PLATELET VOLUME 8.9 fl (9.6-12.3); RED BLOOD COUNT 4.12 10*6/uL (4.10-5.10); RED CELL DISTRI WIDTH 13.7 % (0-14.5); WHITE BLOOD COUNT 6.1 10*3/uL (4.8-10.8)
[2024-08-19 15:13] LABS: POTASSIUM 4.8 mmol/L (3.4-5.1); TOTAL PROTEIN 7.2 gm/dL (6.0-8.0)
== END | disposition home or self-care (01) ==
LOC: LAB 14:08
PROVIDERS: ATTEND Urology
DX: N13.30 Unspecified hydronephrosis (principal)

== ENCOUNTER → 2025-01-14 | Outpatient (CLI) | payer MEDICARE | END | disposition home or self-care (01) | LOC: US 11-17 09:30 | PROVIDERS: ATTEND Urology | DX: N28.89 Other specified disorders of kidney and ureter (principal); Z96.0 Presence of urogenital implants ==

== ENCOUNTER 2025-06-13 11:42 | Emergency (ER) | payer MEDICARE ==
[~2025-06-13] VITALS: Ht 152.4 cm; Wt 77.1 kg
[2025-06-13] MEDS ORDERED: CELEBREX50 MG PO (12:04)
[2025-06-13] MEDS ORDERED: Metoclopramide Hydrochloride 10 MG/2 ML VIAL IV ONE (12:05)
[2025-06-13] MEDS ORDERED: diphenhydrAMINE hydrochloride 50 MG/ML VIAL IV ONE (12:05)
[2025-06-13] MEDS ORDERED: LINZESS145 MC1 PO (12:05)
[2025-06-13] MEDS ORDERED: Ondansetron Hydrochloride 4 MG/2 ML VIAL IV ONE (12:05)
[2025-06-13 12:18] LABS: BASO # 0.0 10*3/uL (0.0-0.1); BASO % 0.6 % (0.0-1.0); EOS # 0.0 10*3/uL (0.0-0.4); EOS % 0.8 % (1.0-4.0); MEAN CELL VOLUME 90.3 fl (81.0-99.0); MEAN CORPUSCULAR HGB 28.4 pg (27.0-31.0); MEAN PLATELET VOLUME 8.9 fl (9.6-12.3); MONO # 0.4 10*3/uL (0.1-1.0); MONO % 8.6 % (3.0-9.0); NEUT # 2.5 10*3/uL (2.3-7.9); NEUT % 50.7 % (47.0-73.0); NUCLEATED RED BLOOD CELL 0.0 % (0.0-0.0); NUCLEATED RED BLOOD CELL 0.0 10*3/uL (0.0-0.0); PLATELET COUNT AUTOMATED 268 10*3/uL (130-400); RED CELL DISTRI WIDTH 13.9 % (0-14.5)
[2025-06-13 12:39] LABS: BUN 21.0 mg/dl (9-23); CPK 77.0 U/L (34-171); SGPT/ALT 15.0 U/L (5-49)
[2025-06-13] MEDS ORDERED: REGLAN10 M1 PO (14:31)
[2025-06-13] MEDS ORDERED: Ondansetron4 MG PO (14:31)
== END 2025-06-13 15:06 | disposition home or self-care (01) ==
LOC: ED 11:42
PROVIDERS: Emergency Medicine
DX: K29.70 Gastritis, unspecified, without bleeding (principal); Z88.1 Allergy status to other antibiotic agents; Z79.899 Other long term (current) drug therapy; Z87.42 Personal history of other diseases of the female genital tract; Z96.651 Presence of right artificial knee joint; Z98.890 Other specified postprocedural states